=== PATIENT | female | born 1985 | race Caucasian/White ===

== ENCOUNTER 2017-01-13 16:36 | Inpatient (IN) | payer SELFPAY ==
[~2017-01-13] VITALS: Ht 170.2 cm; Wt 99.1 kg
[~2017-01-13 16:36] MED LIST: VECURONIUM 10 MG ONE
[2017-01-13] MEDS: NOREPINEPHRINE 4 MG in SODIUM CHLORIDE 0.9% 246 ML IV PRN ×2 (16:59→21:25)
[2017-01-13] MEDS ORDERED: DEXTROSE 50%, 50ML SYRINGE ONE (17:00)
[2017-01-13] MEDS ORDERED: SODIUM BICARB 8.4%, 50ML SYRINGE ONE (17:00)
[2017-01-13] MEDS ORDERED: SODIUM CHLORIDE 0.9%, 250ML ONE (17:00)
[2017-01-13] MEDS ORDERED: NOREPINEPHRINE 1 MG/ML, 4ML ONE (17:00)
[2017-01-13] MEDS ORDERED: EPINEPHRINE SYRINGE 0.1 MG/ML, 10ML ONE (17:00)
[2017-01-13] MEDS ORDERED: CALCIUM CHLORIDE 10%, 10ML SYR ONE (17:00)
[2017-01-13 17:17] LABS: ABG COLLECTION SITE NOT DOCUMENTED
[2017-01-13] MEDS: EPINEPHRINE 2 MG in SODIUM CHLORIDE 0.9% 248 ML IV PRN (17:20)
[2017-01-13] MEDS ORDERED: FENTANYL PF 100 MCG/2ML ONE ×2 (17:28→18:16)
[2017-01-13] MEDS ORDERED: SODIUM CHLORIDE FLUSH 10ML SYR IVF ONE (17:30)
[2017-01-13] MEDS ORDERED: SODIUM ACETATE 150 MEQ in DEXTROSE 5% 1,000 ML IV SCH (17:30)
[2017-01-13] MEDS ORDERED: SODIUM CHLORIDE 0.9% 1,000ML IVBOLUS ONE ×2 (17:30)
[2017-01-13 17:48] LABS: DIFF TOTAL CELLS COUNTED 100 CELL DIFF
[2017-01-13 17:49] LABS: ASPARTATE AMINO TRANSFERASE 94 U/L (15-37)
[2017-01-13 17:50] LABS: BLOOD UREA NITROGEN 8 mg/dL (7-18)
[2017-01-13 17:51] LABS: VERIFY COUNTS? YES
[2017-01-13] MEDS ORDERED: EPINEPHRINE 1 MG in SODIUM CHLORIDE 0.9% 249 ML IV PRN (17:55)
[2017-01-13] MEDS ORDERED: BISACODYL 10 MG SUPP PR PRN (18:00)
[2017-01-13] MEDS: ALBUTEROL/IPRATROPIUM 2.5MG/0.5MG, 3 ML INLINE SCH ×2 (18:00→21:50)
[2017-01-13] MEDS ORDERED: FAMOTIDINE 20 MG/2 ML IV SCH (18:00)
[2017-01-13] MEDS ORDERED: NOREPINEPHRINE 4 MG in SODIUM CHLORIDE 0.9% 246 ML IV PRN (18:00)
[2017-01-13] MEDS ORDERED: LIDOCAINE-MPF 1%, 2ML ENDO PRN (18:00)
[2017-01-13] MEDS ORDERED: PHARMACY MAY ADJ FOR RENAL FX MC SCH (18:00)
[2017-01-13] MEDS ORDERED: ASPIRIN 81 MG TABLET CHEW PO ONE (18:00)
[2017-01-13] MEDS ORDERED: FENTANYL PF 100 MCG/2ML IVPush PRN (18:00)
[2017-01-13 18:01] LABS: IS PT STATUS REG ER OR PRE ER? YES
[2017-01-13] MEDS ORDERED: DEXMEDETOMIDINE 200 MCG in SODIUM CHLORIDE 0.9% 48 ML IV PRN (18:21)
[2017-01-13] MEDS ORDERED: SODIUM PHOSPHATE 20 MMOL in SODIUM CHLORIDE 0.9% 250 ML IVPB PRN (18:21)
[2017-01-13] MEDS ORDERED: FENTANYL PF 250 MCG in SODIUM CHLORIDE 0.9% 250 ML IV PRN (18:21)
[2017-01-13] MEDS ORDERED: MAGNESIUM SULFATE 1 GM in SODIUM CHLORIDE 0.9% 50 ML IVPB PRN (18:30)
[2017-01-13] MEDS ORDERED: FENTANYL PF 100 MCG/2ML IV ONE (18:30)
[2017-01-13] MEDS ORDERED: FENTANYL PF 2,500 MCG in SODIUM CHLORIDE 0.9% 200 ML IV ONE (18:30)
[2017-01-13] MEDS: VECURONIUM 10 MG IVPush PRN ×2 (18:52→21:55)
[2017-01-13] MEDS ORDERED: AMIODARONE 150 MG in DEXTROSE 5% 100 ML IV ONE (19:00)
[2017-01-13] MEDS ORDERED: VANCOMYCIN PER PHARMACY MC PRN (19:00)
[2017-01-13] MEDS ORDERED: PIPERACILLIN/TAZO 3.375 GM in SODIUM CHLORIDE 0.9% 50 ML IV SCH (19:00)
[2017-01-13] MEDS ORDERED: AMIODARONE 900 MG in DEXTROSE 5% 482 ML IV PRN (19:00)
[2017-01-13] MEDS ORDERED: HEPARIN 5,000 UNITS/ML, 1ML ONE (19:01)
[2017-01-13] MEDS ORDERED: HEPARIN 25,000 UNITS/500ML PMX 500 ML ONE (19:01)
[2017-01-13] MEDS: MEROPENEM 1 GM in SODIUM CHLORIDE 0.9% 100 ML IV SCH (19:13)
[2017-01-13] MEDS: HEPARIN 25,000 UNITS/500ML PMX 500 ML IV PRN (19:15)
[2017-01-13 19:16] LABS: ABG COLLECTION SITE LEFT RADIAL; COLLATERAL CIRCULATION TESTING NORMAL
[2017-01-13] MEDS ORDERED: PHARMACOKINETIC CONSULTATION MC ONE (19:30)
[2017-01-13] MEDS ORDERED: HEPARIN 5,000 UNITS/ML, 1ML IV ONE (19:30)
[2017-01-13] MEDS ORDERED: PHARMACOKINETIC MONITORING MC PRN (19:30)
[2017-01-13 19:33] LABS: DAU SCREEN DISCLAIMER
[2017-01-13] MEDS ORDERED: VANCOMYCIN 2,400 MG in SODIUM CHLORIDE 0.9% 500 ML IV SCH (20:00)
[2017-01-13] MEDS ORDERED: FILTER 0.22 MICRON IV PRN (20:30)
[2017-01-13] MEDS: PROPOFOL 100 ML IV PRN (21:19)
[2017-01-13] MEDS: AMIODARONE 900 MG in DEXTROSE 5% 482 ML IV PRN (21:30)
[2017-01-13 22:25] LABS: IS PT STATUS REG ER OR PRE ER? NO
[2017-01-13] MEDS: KSCALE TO 4.0 IV SCH ×3 (22:29→23:00)
[2017-01-13] MEDS: BUSPIRONE 10 MG TABLET NG SCH (22:29)
[2017-01-13 22:33] LABS: ABG COLLECTION SITE RIGHT RADIAL; COLLATERAL CIRCULATION TESTING NORMAL
[2017-01-13] MEDS ORDERED: POTASSIUM CHLORIDE PMX 100 ML IV ONE (23:00)
[2017-01-13] MEDS: OCULAR LUBRICANT OPHTH OINT 3.5 GM EACHEYE SCH (23:01)
[2017-01-13] MEDS: REGULAR INSULIN 62.5 UNITS in SODIUM CHLORIDE 0.9% 249.375 ML IV PRN (23:19)
[2017-01-14] MEDS ORDERED: SODIUM BICARBONATE 1 MEQ/ML, 50ML VIAL ONE (01:29)
[2017-01-14] MEDS ORDERED: SODIUM BICARBONATE 1 MEQ/ML, 50ML VIAL IVPush ONE (01:30)
[2017-01-14] MEDS: ALBUTEROL/IPRATROPIUM 2.5MG/0.5MG, 3 ML INLINE SCH ×6 (01:35→22:15)
[2017-01-14] MEDS: KSCALE TO 4.0 IV SCH ×7 (02:30→23:00)
[2017-01-14] MEDS: PROPOFOL 100 ML IV PRN ×4 (02:55→22:30)
[2017-01-14] MEDS ORDERED: POTASSIUM CHLORIDE 40 MEQ in SODIUM CHLORIDE 0.9% 100 ML IV ONE (03:00)
[2017-01-14] MEDS: MEROPENEM 1 GM in SODIUM CHLORIDE 0.9% 100 ML IV SCH ×3 (03:28→18:42)
[2017-01-14] MEDS: SODIUM ACETATE 150 MEQ in DEXTROSE 5% 1,000 ML IV SCH ×2 (03:41→11:43)
[2017-01-14 04:02] VITALS: BP 108/69
[2017-01-14] MEDS: MAGNESIUM SULFATE 1 GM in SODIUM CHLORIDE 0.9% 50 ML IVPB PRN ×2 (04:04→20:25)
[2017-01-14 04:46] LABS: ABG COLLECTION SITE RIGHT RADIAL; COLLATERAL CIRCULATION TESTING NORMAL
[2017-01-14 04:59] LABS: BLOOD UREA NITROGEN 16 mg/dL (7-18)
[2017-01-14 05:02] LABS: ASPARTATE AMINO TRANSFERASE 87 U/L (15-37)
[2017-01-14 05:13] LABS: DIFF TOTAL CELLS COUNTED 100 CELL DIFF
[2017-01-14 05:16] LABS: ANISOCYTOSIS 1+; GIANT PLATELETS 1+; POLYCHROMASIA 1+
[2017-01-14 05:17] LABS: VERIFY COUNTS? YES
[2017-01-14 06:44] LABS: IS PT STATUS REG ER OR PRE ER? NO
[2017-01-14] MEDS: REGULAR INSULIN 62.5 UNITS in SODIUM CHLORIDE 0.9% 249.375 ML IV PRN ×4 (07:46→18:49)
[2017-01-14] MEDS: BUSPIRONE 10 MG TABLET NG SCH ×3 (07:57→23:24)
[2017-01-14] MEDS: OCULAR LUBRICANT OPHTH OINT 3.5 GM EACHEYE SCH ×3 (07:57→23:24)
[2017-01-14] MEDS: PANTOPRAZOLE 40 MG IV IVPush SCH (07:57)
[2017-01-14] MEDS: NOREPINEPHRINE 8 MG in SODIUM CHLORIDE 0.9% 242 ML IV PRN ×2 (09:14→19:56)
[2017-01-14] MEDS ORDERED: POTASSIUM CHLORIDE 30 MEQ in SODIUM CHLORIDE 0.9% 100 ML IV ONE ×2 (10:00→15:00)
[2017-01-14] MEDS: FENTANYL PF 250 MCG in SODIUM CHLORIDE 0.9% 245 ML IV PRN ×2 (11:12→20:15)
[2017-01-14] MEDS: EPINEPHRINE 2 MG in SODIUM CHLORIDE 0.9% 248 ML IV PRN (11:43)
[2017-01-14] MEDS ORDERED: VANCOMYCIN 2,400 MG in SODIUM CHLORIDE 0.9% 500 ML IV ONE (12:00)
[2017-01-14] MEDS ORDERED: SODIUM ACETATE 75 MEQ in SODIUM CHLORIDE 0.45% 1,000 ML IV SCH (14:30)
[2017-01-14] MEDS: HEPARIN 5,000 UNITS/ML, 1ML IV PRN (14:43)
[2017-01-14] MEDS ORDERED: POTASSIUM CHLORIDE 10% 40 MEQ/30 ML UDC PO ONE (15:00)
[2017-01-14] MEDS: SODIUM ACETATE 75 MEQ in SODIUM CHLORIDE 0.45% 1,000 ML IV SCH ×2 (15:07→23:28)
[2017-01-14 16:39] LABS: ABG COLLECTION SITE RIGHT RADIAL; COLLATERAL CIRCULATION TESTING NORMAL
[2017-01-14] MEDS: VECURONIUM 10 MG IVPush PRN (17:00)
[2017-01-14] MEDS ORDERED: DEXTROSE 50%, 50ML VIAL ONE (19:17)
[2017-01-14] MEDS: HEPARIN 25,000 UNITS/500ML PMX 500 ML IV PRN (19:32)
[2017-01-14] MEDS ORDERED: POTASSIUM CHLORIDE PMX 100 ML IV ONE ×2 (20:00→23:30)
[2017-01-14 20:18] LABS: ABG COLLECTION SITE LEFT BRACHIAL
[2017-01-14] MEDS: AMIODARONE 900 MG in DEXTROSE 5% 482 ML IV PRN (22:30)
[2017-01-15 00:47] LABS: ABG COLLECTION SITE LEFT RADIAL; COLLATERAL CIRCULATION TESTING NORMAL
[2017-01-15] MEDS ORDERED: SODIUM CHLORIDE 0.9% 1,000ML IVBOLUS ONE (01:30)
[2017-01-15] MEDS: PROPOFOL 100 ML IV PRN ×3 (01:40→14:57)
[2017-01-15] MEDS: ALBUTEROL/IPRATROPIUM 2.5MG/0.5MG, 3 ML INLINE SCH ×6 (01:57→21:44)
[2017-01-15] MEDS: NOREPINEPHRINE 8 MG in SODIUM CHLORIDE 0.9% 242 ML IV PRN ×2 (02:14→08:10)
[2017-01-15] MEDS: FENTANYL PF 250 MCG in SODIUM CHLORIDE 0.9% 245 ML IV PRN (02:14)
[2017-01-15] MEDS: EPINEPHRINE 2 MG in SODIUM CHLORIDE 0.9% 248 ML IV PRN ×2 (02:15→09:12)
[2017-01-15] MEDS: MEROPENEM 1 GM in SODIUM CHLORIDE 0.9% 100 ML IV SCH ×3 (03:03→18:36)
[2017-01-15 03:40] LABS: ASPARTATE AMINO TRANSFERASE 70 U/L (15-37); BLOOD UREA NITROGEN 19 mg/dL (7-18)
[2017-01-15] MEDS ORDERED: POTASSIUM CHLORIDE PMX 100 ML IV ONE (04:30)
[2017-01-15 04:34] LABS: ABG COLLECTION SITE RIGHT RADIAL; COLLATERAL CIRCULATION TESTING NORMAL
[2017-01-15] MEDS: MAGNESIUM SULFATE 1 GM in SODIUM CHLORIDE 0.9% 50 ML IVPB PRN (04:38)
[2017-01-15] MEDS: KSCALE TO 4.0 IV SCH ×5 (04:39→22:00)
[2017-01-15 05:09] LABS: DIFF TOTAL CELLS COUNTED 100 CELL DIFF
[2017-01-15] MEDS: PHENYLEPHRINE 10 MG in SODIUM CHLORIDE 0.9% 249 ML IV PRN ×2 (05:10→07:43)
[2017-01-15 05:11] LABS: ANISOCYTOSIS 1+; VERIFY COUNTS? YES
[2017-01-15 05:12] LABS: GIANT PLATELETS 1+; LARGE PLATELETS 1+; OVALOCYTES 1+
[2017-01-15 05:15] VITALS: BP 104/53
[2017-01-15] MEDS: OCULAR LUBRICANT OPHTH OINT 3.5 GM EACHEYE SCH ×3 (06:39→23:06)
[2017-01-15] MEDS: BUSPIRONE 10 MG TABLET NG SCH ×3 (07:30→23:13)
[2017-01-15] MEDS ORDERED: DOBUTAMINE 250 MG in SODIUM CHLORIDE 0.9% 230 ML IV PRN (08:00)
[2017-01-15 08:09] LABS: ABG COLLECTION SITE RIGHT RADIAL
[2017-01-15 08:10] LABS: COLLATERAL CIRCULATION TESTING NORMAL
[2017-01-15] MEDS: SODIUM ACETATE 75 MEQ in SODIUM CHLORIDE 0.45% 1,000 ML IV SCH ×2 (08:30→17:29)
[2017-01-15] MEDS ORDERED: FENTANYL PF 2,500 MCG in SODIUM CHLORIDE 0.9% 200 ML IV PRN (09:00)
[2017-01-15] MEDS: PANTOPRAZOLE 40 MG IV IVPush SCH (09:50)
[2017-01-15] MEDS ORDERED: PHENYLEPHRINE 20 MG in SODIUM CHLORIDE 0.9% 248 ML IV PRN (10:00)
[2017-01-15 12:05] LABS: ABG COLLECTION SITE RIGHT RADIAL; COLLATERAL CIRCULATION TESTING NORMAL
[2017-01-15] MEDS: NOREPINEPHRINE 16 MG in SODIUM CHLORIDE 0.9% 234 ML IV PRN ×2 (13:33→21:09)
[2017-01-15] MEDS: EPINEPHRINE 4 MG in SODIUM CHLORIDE 0.9% 246 ML IV PRN ×2 (13:46→21:10)
[2017-01-15] MEDS ORDERED: LIDOCAINE 1%, 20ML ONE (15:01)
[2017-01-15] MEDS: PHENYLEPHRINE 40 MG in SODIUM CHLORIDE 0.9% 246 ML IV PRN ×3 (16:29→23:51)
[2017-01-15 16:33] LABS: ABG COLLECTION SITE RIGHT RADIAL; COLLATERAL CIRCULATION TESTING NORMAL
[2017-01-15] MEDS ORDERED: PICC FLUSH PROTOCOL XX PRN (18:00)
[2017-01-15 20:11] LABS: ABG COLLECTION SITE RIGHT RADIAL; COLLATERAL CIRCULATION TESTING NOT DOCUMENTED
[2017-01-15] MEDS: HEPARIN 25,000 UNITS/500ML PMX 500 ML IV PRN (23:45)
[2017-01-16] MEDS: PROPOFOL 100 ML IV PRN ×3 (01:03→18:44)
[2017-01-16 01:52] LABS: ABG COLLECTION SITE RIGHT BRACHIAL
[2017-01-16] MEDS: KSCALE TO 4.0 IV SCH (02:00)
[2017-01-16] MEDS: SODIUM ACETATE 75 MEQ in SODIUM CHLORIDE 0.45% 1,000 ML IV SCH ×2 (02:09→08:19)
[2017-01-16] MEDS: ALBUTEROL/IPRATROPIUM 2.5MG/0.5MG, 3 ML INLINE SCH ×6 (02:20→21:45)
[2017-01-16] MEDS ORDERED: VECURONIUM 10 MG IVPush PRN (02:30)
[2017-01-16] MEDS: MEROPENEM 1 GM in SODIUM CHLORIDE 0.9% 100 ML IV SCH ×3 (03:04→19:02)
[2017-01-16] MEDS: VECURONIUM 10 MG IVPush PRN ×4 (03:07→17:37)
[2017-01-16] MEDS: EPINEPHRINE 4 MG in SODIUM CHLORIDE 0.9% 246 ML IV PRN ×2 (03:52→11:43)
[2017-01-16 04:00] VITALS: BP 90/72
[2017-01-16] MEDS: AMIODARONE 900 MG in DEXTROSE 5% 482 ML IV PRN (04:21)
[2017-01-16 04:58] LABS: ABG COLLECTION SITE LEFT RADIAL; COLLATERAL CIRCULATION TESTING NORMAL
[2017-01-16] MEDS: NOREPINEPHRINE 16 MG in SODIUM CHLORIDE 0.9% 234 ML IV PRN ×2 (05:41→14:52)
[2017-01-16 05:43] LABS: ASPARTATE AMINO TRANSFERASE 81 U/L (15-37); BLOOD UREA NITROGEN 22 mg/dL (7-18)
[2017-01-16 06:01] LABS: DIFF TOTAL CELLS COUNTED 100 CELL DIFF
[2017-01-16 06:03] LABS: ANISOCYTOSIS 1+; VERIFY COUNTS? YES
[2017-01-16 06:05] LABS: LARGE PLATELETS 1+; POLYCHROMASIA 1+
[2017-01-16] MEDS: OCULAR LUBRICANT OPHTH OINT 3.5 GM EACHEYE SCH ×3 (06:16→23:38)
[2017-01-16] MEDS: BUSPIRONE 10 MG TABLET NG SCH ×2 (07:30→14:58)
[2017-01-16] MEDS: PHENYLEPHRINE 40 MG in SODIUM CHLORIDE 0.9% 246 ML IV PRN (07:56)
[2017-01-16] MEDS: ALBUMIN HUMAN 25% 100 ML IV SCH ×3 (10:17→21:08)
[2017-01-16] MEDS: PANTOPRAZOLE 40 MG IV IVPush SCH (10:17)
[2017-01-16] MEDS: FENTANYL PF 2,500 MCG in SODIUM CHLORIDE 0.9% 200 ML IV PRN (11:32)
[2017-01-16 11:56] LABS: POTASSIUM,URINE RANDOM 33 mmol/L
[2017-01-16 15:13] LABS: ASPARTATE AMINO TRANSFERASE 78 U/L (15-37); BLOOD UREA NITROGEN 12 mg/dL (7-18)
[2017-01-16 15:44] LABS: DIFF TOTAL CELLS COUNTED 200 CELL DIFF
[2017-01-16 15:45] LABS: ANISOCYTOSIS 1+
[2017-01-16 15:46] LABS: OVALOCYTES 1+; POLYCHROMASIA 1+
[2017-01-16 15:48] LABS: LARGE PLATELETS 1+
[2017-01-16] MEDS ORDERED: SODIUM CHLORIDE 0.9% 1,000ML IVBOLUS ONE (17:00)
[2017-01-16] MEDS: HEPARIN 25,000 UNITS/500ML PMX 500 ML IV PRN (22:20)
[2017-01-17] MEDS: ALBUTEROL/IPRATROPIUM 2.5MG/0.5MG, 3 ML INLINE SCH ×6 (02:14→22:00)
[2017-01-17] MEDS: VECURONIUM 10 MG IVPush PRN ×4 (02:27→17:20)
[2017-01-17] MEDS: MEROPENEM 1 GM in SODIUM CHLORIDE 0.9% 100 ML IV SCH ×3 (02:44→18:59)
[2017-01-17] MEDS: ALBUMIN HUMAN 25% 100 ML IV SCH (03:17)
[2017-01-17 04:00] VITALS: BP 126/66
[2017-01-17 04:16] LABS: ABG COLLECTION SITE RIGHT RADIAL; COLLATERAL CIRCULATION TESTING NORMAL
[2017-01-17 04:47] LABS: DIFF TOTAL CELLS COUNTED 100 CELL DIFF
[2017-01-17 04:56] LABS: ANISOCYTOSIS 1+; VERIFY COUNTS? YES
[2017-01-17 04:57] LABS: LARGE PLATELETS 1+; POLYCHROMASIA 1+
[2017-01-17] MEDS: HEPARIN 5,000 UNITS/ML, 1ML IV PRN ×2 (04:57→19:38)
[2017-01-17 05:36] LABS: ASPARTATE AMINO TRANSFERASE 56 U/L (15-37); BLOOD UREA NITROGEN 15 mg/dL (7-18); TOTAL IRON BINDING CAPACITY 142 mcg/dL (250-450)
[2017-01-17] MEDS: PROPOFOL 100 ML IV PRN ×4 (05:39→23:59)
[2017-01-17 08:42] LABS: HIT LOT CART23835/KIT23844
[2017-01-17] MEDS: PANTOPRAZOLE 40 MG IV IVPush SCH (08:57)
[2017-01-17 09:26] LABS: HIT OBC PASS; HIT RESULT NEGATIVE (NEGATIVE)
[2017-01-17] MEDS: AMIODARONE 900 MG in DEXTROSE 5% 482 ML IV PRN (09:53)
[2017-01-17] MEDS: NOREPINEPHRINE 16 MG in SODIUM CHLORIDE 0.9% 234 ML IV PRN (12:13)
[2017-01-17] MEDS: OCULAR LUBRICANT OPHTH OINT 3.5 GM EACHEYE SCH ×3 (13:57→23:41)
[2017-01-17] MEDS: FENTANYL PF 2,500 MCG in SODIUM CHLORIDE 0.9% 200 ML IV PRN (15:02)
[2017-01-17] MEDS: HEPARIN 25,000 UNITS/500ML PMX 500 ML IV PRN (19:38)
[2017-01-18] MEDS: VECURONIUM 10 MG IVPush PRN ×3 (00:37→18:55)
[2017-01-18] MEDS: ALBUTEROL/IPRATROPIUM 2.5MG/0.5MG, 3 ML INLINE SCH ×6 (02:00→22:00)
[2017-01-18 03:57] VITALS: BP 115/63
[2017-01-18 04:29] LABS: ABG COLLECTION SITE LEFT RADIAL; COLLATERAL CIRCULATION TESTING NORMAL
[2017-01-18] MEDS: PROPOFOL 100 ML IV PRN ×3 (05:10→18:30)
[2017-01-18] MEDS: MEROPENEM 1 GM in SODIUM CHLORIDE 0.9% 100 ML IV SCH ×2 (06:08→18:47)
[2017-01-18] MEDS: OCULAR LUBRICANT OPHTH OINT 3.5 GM EACHEYE SCH ×3 (06:08→23:10)
[2017-01-18 06:44] LABS: ASPARTATE AMINO TRANSFERASE 58 U/L (15-37); BLOOD UREA NITROGEN 11 mg/dL (7-18)
[2017-01-18 06:54] LABS: DIFF TOTAL CELLS COUNTED 100 CELL DIFF
[2017-01-18 06:56] LABS: ANISOCYTOSIS 1+; OVALOCYTES 1+; VERIFY COUNTS? YES
[2017-01-18 06:57] LABS: LARGE PLATELETS 1+
[2017-01-18] MEDS: PANTOPRAZOLE 40 MG IV IVPush SCH (08:04)
[2017-01-18] MEDS ORDERED: FUROSEMIDE 40 MG/4 ML IV ONE (08:30)
[2017-01-18] MEDS: HEPARIN 25,000 UNITS/500ML PMX 500 ML IV PRN (11:33)
[2017-01-18] MEDS ORDERED: OMNIPAQUE 350 MG/ML, 100ML BOTTLE ONE (12:22)
[2017-01-18] MEDS: AMIODARONE 900 MG in DEXTROSE 5% 482 ML IV PRN (16:52)
[2017-01-18] MEDS: FENTANYL PF 2,500 MCG in SODIUM CHLORIDE 0.9% 200 ML IV PRN (18:50)
[2017-01-18] MEDS: HEPARIN 5,000 UNITS/ML, 1ML SQ SCH (23:09)
[2017-01-19] MEDS: ALBUTEROL/IPRATROPIUM 2.5MG/0.5MG, 3 ML INLINE SCH ×6 (02:00→21:56)
[2017-01-19] MEDS: PROPOFOL 100 ML IV PRN ×3 (04:03→17:56)
[2017-01-19 04:15] VITALS: BP 128/63
[2017-01-19 04:19] LABS: ABG COLLECTION SITE RIGHT RADIAL; COLLATERAL CIRCULATION TESTING NORMAL
[2017-01-19 06:00] LABS: DIFF TOTAL CELLS COUNTED 100 CELL DIFF
[2017-01-19 06:02] LABS: VERIFY COUNTS? YES
[2017-01-19 06:03] LABS: ANISOCYTOSIS 1+; POLYCHROMASIA 1+
[2017-01-19 06:04] LABS: LARGE PLATELETS 1+; OVALOCYTES 1+
[2017-01-19 06:06] LABS: BLOOD UREA NITROGEN 10 mg/dL (7-18)
[2017-01-19] MEDS: MEROPENEM 1 GM in SODIUM CHLORIDE 0.9% 100 ML IV SCH ×2 (06:49→18:26)
[2017-01-19] MEDS: OCULAR LUBRICANT OPHTH OINT 3.5 GM EACHEYE SCH ×3 (06:49→23:38)
[2017-01-19] MEDS: VECURONIUM 10 MG IVPush PRN ×3 (08:42→15:03)
[2017-01-19] MEDS: FLUCONAZOLE 200 MG/100 ML 100 ML IV SCH (08:43)
[2017-01-19] MEDS: HEPARIN 5,000 UNITS/ML, 1ML SQ SCH ×3 (08:44→23:38)
[2017-01-19] MEDS: PANTOPRAZOLE 40 MG IV IVPush SCH (08:44)
[2017-01-19 10:19] LABS: HEP B SURF. AB < 3.1 mIU/mL (0.0-10.0)
[2017-01-19] MEDS ORDERED: FILTER 0.22 MICRON IV ONE (14:30)
[2017-01-19] MEDS ORDERED: PHENYTOIN SODIUM 1,000 MG in SODIUM CHLORIDE 0.9% 80 ML IV ONE (14:30)
[2017-01-19] MEDS: FILTER 0.22 MICRON IV PRN (16:04)
[2017-01-19] MEDS: NOREPINEPHRINE 16 MG in SODIUM CHLORIDE 0.9% 234 ML IV PRN (16:04)
[2017-01-19] MEDS: AMIODARONE 900 MG in DEXTROSE 5% 482 ML IV PRN (16:04)
[2017-01-19] MEDS: FENTANYL PF 2,500 MCG in SODIUM CHLORIDE 0.9% 200 ML IV PRN (17:57)
[2017-01-19] MEDS: LEVETIRACETAM 100 MG/ML ORAL SOL PO SCH (21:21)
[2017-01-20] MEDS: ALBUTEROL/IPRATROPIUM 2.5MG/0.5MG, 3 ML INLINE SCH ×6 (02:00→21:57)
[2017-01-20] MEDS: PROPOFOL 100 ML IV PRN ×3 (03:48→20:48)
[2017-01-20 04:00] VITALS: BP 124/68
[2017-01-20 04:11] LABS: ABG COLLECTION SITE RIGHT RADIAL; COLLATERAL CIRCULATION TESTING NORMAL
[2017-01-20] MEDS: VECURONIUM 10 MG IVPush PRN (05:17)
[2017-01-20] MEDS: OCULAR LUBRICANT OPHTH OINT 3.5 GM EACHEYE SCH ×2 (06:15→16:20)
[2017-01-20] MEDS: MEROPENEM 1 GM in SODIUM CHLORIDE 0.9% 100 ML IV SCH ×2 (06:15→19:44)
[2017-01-20 06:16] LABS: ASPARTATE AMINO TRANSFERASE 47 U/L (15-37); BLOOD UREA NITROGEN 16 mg/dL (7-18)
[2017-01-20 06:33] LABS: DIFF TOTAL CELLS COUNTED 100 CELL DIFF
[2017-01-20 06:35] LABS: ANISOCYTOSIS 1+; POLYCHROMASIA 1+; VERIFY COUNTS? YES
[2017-01-20 06:38] LABS: OVALOCYTES 1+
[2017-01-20] MEDS: PANTOPRAZOLE 40 MG IV IVPush SCH (08:53)
[2017-01-20] MEDS: LEVETIRACETAM 100 MG/ML ORAL SOL PO SCH ×2 (08:53→20:48)
[2017-01-20] MEDS: HEPARIN 5,000 UNITS/ML, 1ML SQ SCH ×2 (08:55→16:18)
[2017-01-20] MEDS: FLUCONAZOLE 200 MG/100 ML 100 ML IV SCH (16:19)
[2017-01-21] MEDS: OCULAR LUBRICANT OPHTH OINT 3.5 GM EACHEYE SCH ×2 (00:30→07:00)
[2017-01-21] MEDS: HEPARIN 5,000 UNITS/ML, 1ML SQ SCH ×3 (00:32→15:47)
[2017-01-21] MEDS: ALBUTEROL/IPRATROPIUM 2.5MG/0.5MG, 3 ML INLINE SCH ×6 (01:31→22:00)
[2017-01-21] MEDS: PROPOFOL 100 ML IV PRN ×3 (03:17→19:58)
[2017-01-21 04:00] VITALS: BP 114/67
[2017-01-21 04:43] LABS: ABG COLLECTION SITE LEFT RADIAL; COLLATERAL CIRCULATION TESTING NORMAL
[2017-01-21 04:56] LABS: ASPARTATE AMINO TRANSFERASE 48 U/L (15-37); BLOOD UREA NITROGEN 20 mg/dL (7-18)
[2017-01-21 05:20] LABS: DIFF TOTAL CELLS COUNTED 100 CELL DIFF
[2017-01-21 05:21] LABS: VERIFY COUNTS? YES
[2017-01-21 05:22] LABS: ANISOCYTOSIS 1+; LARGE PLATELETS 1+; OVALOCYTES 1+; POLYCHROMASIA 1+
[2017-01-21] MEDS: FENTANYL PF 2,500 MCG in SODIUM CHLORIDE 0.9% 200 ML IV PRN (05:30)
[2017-01-21] MEDS: AMIODARONE 900 MG in DEXTROSE 5% 482 ML IV PRN (05:31)
[2017-01-21] MEDS: FILTER 0.22 MICRON IV PRN (05:32)
[2017-01-21] MEDS: PANTOPRAZOLE 40 MG IV IVPush SCH (07:30)
[2017-01-21] MEDS: FLUCONAZOLE 200 MG/100 ML 100 ML IV SCH (07:30)
[2017-01-21] MEDS: LEVETIRACETAM 100 MG/ML ORAL SOL PO SCH ×2 (07:31→20:01)
[2017-01-21] MEDS: MEROPENEM 1 GM in SODIUM CHLORIDE 0.9% 100 ML IV SCH ×2 (07:31→20:00)
[2017-01-21 15:23] LABS: ABG COLLECTION SITE LEFT BRACHIAL
[2017-01-21] MEDS: VECURONIUM 10 MG IVPush PRN ×2 (15:46→20:38)
[2017-01-22] MEDS: HEPARIN 5,000 UNITS/ML, 1ML SQ SCH ×4 (00:31→23:55)
[2017-01-22] MEDS: PROPOFOL 100 ML IV PRN ×4 (01:09→20:18)
[2017-01-22] MEDS: ALBUTEROL/IPRATROPIUM 2.5MG/0.5MG, 3 ML INLINE SCH ×6 (01:33→22:00)
[2017-01-22 04:00] VITALS: BP 124/67
[2017-01-22 04:32] LABS: ABG COLLECTION SITE LEFT RADIAL; COLLATERAL CIRCULATION TESTING NORMAL
[2017-01-22 05:49] LABS: ASPARTATE AMINO TRANSFERASE 53 U/L (15-37); BLOOD UREA NITROGEN 30 mg/dL (7-18)
[2017-01-22] MEDS: FENTANYL PF 2,500 MCG in SODIUM CHLORIDE 0.9% 200 ML IV PRN (06:07)
[2017-01-22 06:18] LABS: DIFF TOTAL CELLS COUNTED 100 CELL DIFF
[2017-01-22 06:19] LABS: ANISOCYTOSIS 1+; POLYCHROMASIA 1+
[2017-01-22 06:20] LABS: OVALOCYTES 1+
[2017-01-22 06:21] LABS: VERIFY COUNTS? YES
[2017-01-22] MEDS: LEVETIRACETAM 100 MG/ML ORAL SOL PO SCH ×2 (07:09→20:02)
[2017-01-22] MEDS: PANTOPRAZOLE 40 MG IV IVPush SCH (07:09)
[2017-01-22] MEDS: MEROPENEM 1 GM in SODIUM CHLORIDE 0.9% 100 ML IV SCH ×2 (07:09→20:02)
[2017-01-22] MEDS ORDERED: PHARMACOKINETIC MONITORING MC PRN (07:30)
[2017-01-22] MEDS ORDERED: PHARMACOKINETIC CONSULTATION MC ONE (07:30)
[2017-01-22] MEDS ORDERED: VANCOMYCIN PER PHARMACY MC PRN (07:30)
[2017-01-22] MEDS ORDERED: VANCOMYCIN 2,200 MG in SODIUM CHLORIDE 0.9% 500 ML IV ONE (07:30)
[2017-01-22] MEDS ORDERED: METHYLNALTREXONE 12 MG/0.6 ML SQ ONE (09:00)
[2017-01-22] MEDS: VECURONIUM 10 MG IVPush PRN ×3 (09:27→20:26)
[2017-01-22] MEDS: AMIODARONE 900 MG in DEXTROSE 5% 482 ML IV PRN (11:24)
[2017-01-22] MEDS: ERGOCALCIFEROL 50,000 UNIT CAPSULE PO SCH (14:31)
[2017-01-23] MEDS: VECURONIUM 10 MG IVPush PRN ×2 (02:01→18:51)
[2017-01-23] MEDS: PROPOFOL 100 ML IV PRN ×4 (02:14→23:17)
[2017-01-23] MEDS: ALBUTEROL/IPRATROPIUM 2.5MG/0.5MG, 3 ML INLINE SCH ×6 (02:20→21:48)
[2017-01-23 02:26] LABS: ABG COLLECTION SITE RIGHT RADIAL; COLLATERAL CIRCULATION TESTING NORMAL
[2017-01-23 04:00] VITALS: BP 126/73
[2017-01-23 04:11] LABS: ABG COLLECTION SITE RIGHT RADIAL; COLLATERAL CIRCULATION TESTING NORMAL
[2017-01-23 05:25] LABS: BLOOD UREA NITROGEN 43 mg/dL (7-18)
[2017-01-23 05:28] LABS: ASPARTATE AMINO TRANSFERASE 48 U/L (15-37)
[2017-01-23 05:39] LABS: DIFF TOTAL CELLS COUNTED 100 CELL DIFF
[2017-01-23 05:42] LABS: ANISOCYTOSIS 1+; OVALOCYTES 1+; POLYCHROMASIA 1+; VERIFY COUNTS? YES
[2017-01-23 06:54] LABS: VERIFY COUNTS? YES
[2017-01-23] MEDS: HEPARIN 5,000 UNITS/ML, 1ML SQ SCH ×3 (10:05→23:20)
[2017-01-23] MEDS: PANTOPRAZOLE 40 MG IV IVPush SCH (10:05)
[2017-01-23] MEDS: AMIODARONE 200 MG TABLET NG SCH ×2 (10:06→21:19)
[2017-01-23] MEDS: LEVETIRACETAM 100 MG/ML ORAL SOL PO SCH ×2 (10:06→21:19)
[2017-01-23] MEDS: MICAFUNGIN 100 MG in SODIUM CHLORIDE 0.9% 100 ML IV SCH (12:50)
[2017-01-23] MEDS: MEROPENEM 1 GM in SODIUM CHLORIDE 0.9% 100 ML IV SCH ×2 (12:51→20:01)
[2017-01-23] MEDS: SENNA/DOCUSATE TABLET NG PRN (21:20)
[2017-01-23] MEDS: LACTULOSE 20 GM/30 ML UDC NG PRN (22:21)
[2017-01-24] MEDS: ALBUTEROL/IPRATROPIUM 2.5MG/0.5MG, 3 ML INLINE SCH ×6 (01:50→22:00)
[2017-01-24 04:00] VITALS: BP 114/49
[2017-01-24 04:34] LABS: ABG COLLECTION SITE RIGHT RADIAL; COLLATERAL CIRCULATION TESTING NORMAL
[2017-01-24] MEDS: PROPOFOL 100 ML IV PRN ×3 (04:49→16:31)
[2017-01-24 04:53] LABS: BLOOD UREA NITROGEN 53 mg/dL (7-18)
[2017-01-24 05:53] LABS: DIFF TOTAL CELLS COUNTED 100 CELL DIFF
[2017-01-24 05:55] LABS: ANISOCYTOSIS 1+; OVALOCYTES 1+; POLYCHROMASIA 1+; VERIFY COUNTS? YES
[2017-01-24] MEDS: MICAFUNGIN 100 MG in SODIUM CHLORIDE 0.9% 100 ML IV SCH (06:47)
[2017-01-24] MEDS: HEPARIN 5,000 UNITS/ML, 1ML SQ SCH ×3 (07:08→23:26)
[2017-01-24] MEDS: PANTOPRAZOLE 40 MG IV IVPush SCH (07:08)
[2017-01-24] MEDS: LEVETIRACETAM 100 MG/ML ORAL SOL PO SCH ×2 (07:09→20:22)
[2017-01-24] MEDS: MEROPENEM 1 GM in SODIUM CHLORIDE 0.9% 100 ML IV SCH ×2 (07:09→20:19)
[2017-01-24] MEDS: AMIODARONE 200 MG TABLET NG SCH ×2 (07:09→20:22)
[2017-01-24] MEDS: SENNOSIDES 8.8 MG/5 ML ORAL SOL NG PRN ×2 (07:21→20:22)
[2017-01-24] MEDS ORDERED: VANCOMYCIN 2,200 MG in SODIUM CHLORIDE 0.9% 500 ML IV ONE (12:00)
[2017-01-24] MEDS ORDERED: BISACODYL 10 MG SUPP PR PRN (19:00)
[2017-01-24] MEDS: VECURONIUM 10 MG IVPush PRN (19:38)
[2017-01-24] MEDS: LACTULOSE 20 GM/30 ML UDC NG PRN (20:22)
[2017-01-24] MEDS: FENTANYL PF 2,500 MCG in SODIUM CHLORIDE 0.9% 200 ML IV PRN (21:38)
[2017-01-24] MEDS: NOREPINEPHRINE 16 MG in SODIUM CHLORIDE 0.9% 234 ML IV PRN (23:42)
[2017-01-25] MEDS: ALBUTEROL/IPRATROPIUM 2.5MG/0.5MG, 3 ML INLINE SCH ×6 (02:00→21:45)
[2017-01-25 03:34] LABS: BLOOD UREA NITROGEN 42 mg/dL (7-18)
[2017-01-25 04:00] VITALS: BP 128/67
[2017-01-25 04:02] LABS: DIFF TOTAL CELLS COUNTED 100 CELL DIFF
[2017-01-25 04:21] LABS: ANISOCYTOSIS 1+; OVALOCYTES 1+; POLYCHROMASIA 1+
[2017-01-25 04:31] LABS: VERIFY COUNTS? YES
[2017-01-25] MEDS: PROPOFOL 100 ML IV PRN ×4 (04:51→19:46)
[2017-01-25] MEDS: MICAFUNGIN 100 MG in SODIUM CHLORIDE 0.9% 100 ML IV SCH (06:16)
[2017-01-25] MEDS: PANTOPRAZOLE 40 MG IV IVPush SCH (09:14)
[2017-01-25] MEDS: MEROPENEM 1 GM in SODIUM CHLORIDE 0.9% 100 ML IV SCH (09:14)
[2017-01-25] MEDS: SENNA/DOCUSATE TABLET NG PRN (09:14)
[2017-01-25] MEDS: AMIODARONE 200 MG TABLET NG SCH ×2 (09:14→20:27)
[2017-01-25] MEDS: HEPARIN 5,000 UNITS/ML, 1ML SQ SCH ×2 (09:15→17:12)
[2017-01-25] MEDS: LEVETIRACETAM 100 MG/ML ORAL SOL PO SCH ×2 (09:15→20:26)
[2017-01-25] MEDS: METHYLNALTREXONE 12 MG/0.6 ML SQ SCH (10:24)
[2017-01-25] MEDS: SODIUM BICARBONATE 4.2%, 5ML NPPB SCH ×4 (10:30→21:30)
[2017-01-25] MEDS: BISACODYL 10 MG SUPP PR PRN (22:43)
[2017-01-26] MEDS: HEPARIN 5,000 UNITS/ML, 1ML SQ SCH ×4 (00:38→23:42)
[2017-01-26] MEDS: MEROPENEM 1 GM in SODIUM CHLORIDE 0.9% 100 ML IV SCH ×2 (00:39→11:45)
[2017-01-26] MEDS: SODIUM BICARBONATE 4.2%, 5ML NPPB SCH ×6 (01:21→21:30)
[2017-01-26] MEDS: ALBUTEROL/IPRATROPIUM 2.5MG/0.5MG, 3 ML INLINE SCH ×6 (02:00→22:00)
[2017-01-26] MEDS: FENTANYL PF 2,500 MCG in SODIUM CHLORIDE 0.9% 200 ML IV PRN (02:42)
[2017-01-26 04:09] VITALS: BP 110/54
[2017-01-26 04:19] LABS: BLOOD UREA NITROGEN 38 mg/dL (7-18)
[2017-01-26 04:31] LABS: ABG COLLECTION SITE LEFT RADIAL; COLLATERAL CIRCULATION TESTING NORMAL
[2017-01-26 05:04] LABS: DIFF TOTAL CELLS COUNTED 100 CELL DIFF
[2017-01-26 05:05] LABS: VERIFY COUNTS? YES
[2017-01-26 05:06] LABS: ANISOCYTOSIS 1+; OVALOCYTES 1+; POLYCHROMASIA 1+
[2017-01-26] MEDS: PROPOFOL 100 ML IV PRN ×3 (05:50→23:21)
[2017-01-26] MEDS: MICAFUNGIN 100 MG in SODIUM CHLORIDE 0.9% 100 ML IV SCH (06:43)
[2017-01-26] MEDS: PANTOPRAZOLE 40 MG IV IVPush SCH (08:41)
[2017-01-26] MEDS: LEVETIRACETAM 100 MG/ML ORAL SOL PO SCH ×2 (08:41→21:55)
[2017-01-26] MEDS: AMIODARONE 200 MG TABLET NG SCH ×2 (08:41→21:55)
[2017-01-26] MEDS: METHYLNALTREXONE 12 MG/0.6 ML SQ SCH (08:42)
[2017-01-26] MEDS: LACTULOSE 20 GM/30 ML UDC NG PRN ×2 (11:45→21:56)
[2017-01-26] MEDS: POLYETHYLENE GLYCOL 17 GM PACKET PO PRN (15:03)
[2017-01-26] MEDS: NOREPINEPHRINE 16 MG in SODIUM CHLORIDE 0.9% 234 ML IV PRN (15:04)
[2017-01-26] MEDS: BISACODYL 10 MG SUPP PR PRN (18:20)
[2017-01-27] MEDS: MEROPENEM 1 GM in SODIUM CHLORIDE 0.9% 100 ML IV SCH (00:40)
[2017-01-27] MEDS: FENTANYL PF 2,500 MCG in SODIUM CHLORIDE 0.9% 200 ML IV PRN (01:16)
[2017-01-27] MEDS: SODIUM BICARBONATE 4.2%, 5ML NPPB SCH ×6 (01:30→21:30)
[2017-01-27] MEDS: ALBUTEROL/IPRATROPIUM 2.5MG/0.5MG, 3 ML INLINE SCH ×6 (02:00→22:00)
[2017-01-27 03:51] LABS: BLOOD UREA NITROGEN 35 mg/dL (7-18)
[2017-01-27 04:00] VITALS: BP 113/52
[2017-01-27 04:01] LABS: DIFF TOTAL CELLS COUNTED 100 CELL DIFF
[2017-01-27 04:05] LABS: ANISOCYTOSIS 1+; POLYCHROMASIA 1+; VERIFY COUNTS? YES
[2017-01-27 04:06] LABS: HYPOCHROMIA 1+
[2017-01-27 04:07] LABS: LARGE PLATELETS 1+
[2017-01-27 04:39] LABS: ABG COLLECTION SITE LEFT RADIAL
[2017-01-27 04:47] LABS: COLLATERAL CIRCULATION TESTING NORMAL
[2017-01-27] MEDS: PROPOFOL 100 ML IV PRN (05:09)
[2017-01-27] MEDS: MICAFUNGIN 100 MG in SODIUM CHLORIDE 0.9% 100 ML IV SCH (07:40)
[2017-01-27] MEDS: PANTOPRAZOLE 40 MG IV IVPush SCH (07:40)
[2017-01-27] MEDS: HEPARIN 5,000 UNITS/ML, 1ML SQ SCH ×3 (07:41→23:38)
[2017-01-27] MEDS: METHYLNALTREXONE 12 MG/0.6 ML SQ SCH (08:30)
[2017-01-27] MEDS: LEVETIRACETAM 100 MG/ML ORAL SOL PO SCH ×2 (09:18→20:51)
[2017-01-27] MEDS: AMIODARONE 200 MG TABLET NG SCH ×2 (09:18→20:51)
[2017-01-27] MEDS ORDERED: MEROPENEM 500 MG in SODIUM CHLORIDE 0.9% 100 ML IV SCH (20:30)
[2017-01-27] MEDS ORDERED: VANCOMYCIN 2,200 MG in SODIUM CHLORIDE 0.9% 500 ML IV ONE (22:00)
[2017-01-28] MEDS: SODIUM BICARBONATE 4.2%, 5ML NPPB SCH ×7 (01:30→22:54)
[2017-01-28] MEDS: ALBUTEROL/IPRATROPIUM 2.5MG/0.5MG, 3 ML INLINE SCH ×6 (02:00→22:00)
[2017-01-28 04:00] VITALS: BP 111/53
[2017-01-28 04:22] LABS: BLOOD UREA NITROGEN 44 mg/dL (7-18)
[2017-01-28 04:28] LABS: ABG COLLECTION SITE RIGHT RADIAL; COLLATERAL CIRCULATION TESTING NORMAL
[2017-01-28 05:15] LABS: DIFF TOTAL CELLS COUNTED 100 CELL DIFF
[2017-01-28 05:17] LABS: ANISOCYTOSIS 1+; POLYCHROMASIA 1+
[2017-01-28 05:18] LABS: LARGE PLATELETS 1+; OVALOCYTES 1+; VERIFY COUNTS? YES
[2017-01-28] MEDS: MICAFUNGIN 100 MG in SODIUM CHLORIDE 0.9% 100 ML IV SCH (06:45)
[2017-01-28] MEDS: METHYLNALTREXONE 12 MG/0.6 ML SQ SCH (08:27)
[2017-01-28] MEDS: AMIODARONE 200 MG TABLET NG SCH ×2 (08:27→21:20)
[2017-01-28] MEDS: PANTOPRAZOLE 40 MG IV IVPush SCH (08:27)
[2017-01-28] MEDS: HEPARIN 5,000 UNITS/ML, 1ML SQ SCH ×3 (08:27→23:42)
[2017-01-28] MEDS: LEVETIRACETAM 100 MG/ML ORAL SOL PO SCH ×2 (08:28→21:20)
[2017-01-29] MEDS: ALBUTEROL/IPRATROPIUM 2.5MG/0.5MG, 3 ML INLINE SCH ×6 (02:00→21:55)
[2017-01-29 04:00] VITALS: BP 136/61
[2017-01-29 04:32] LABS: ABG COLLECTION SITE LEFT RADIAL
[2017-01-29 04:33] LABS: COLLATERAL CIRCULATION TESTING NORMAL
[2017-01-29 04:36] LABS: BLOOD UREA NITROGEN 42 mg/dL (7-18)
[2017-01-29 05:48] LABS: DIFF TOTAL CELLS COUNTED 100 CELL DIFF
[2017-01-29 05:50] LABS: ANISOCYTOSIS 1+; VERIFY COUNTS? YES
[2017-01-29 05:51] LABS: LARGE PLATELETS 1+; POLYCHROMASIA 1+
[2017-01-29] MEDS: MICAFUNGIN 100 MG in SODIUM CHLORIDE 0.9% 100 ML IV SCH (06:44)
[2017-01-29] MEDS: HEPARIN 5,000 UNITS/ML, 1ML SQ SCH ×3 (07:51→23:55)
[2017-01-29] MEDS: PANTOPRAZOLE 40 MG IV IVPush SCH (07:51)
[2017-01-29] MEDS: METHYLNALTREXONE 12 MG/0.6 ML SQ SCH (08:58)
[2017-01-29] MEDS: ERGOCALCIFEROL 50,000 UNIT CAPSULE PO SCH (08:59)
[2017-01-29] MEDS: LEVETIRACETAM 100 MG/ML ORAL SOL PO SCH ×2 (08:59→20:41)
[2017-01-29] MEDS: AMIODARONE 200 MG TABLET NG SCH ×2 (08:59→20:41)
[2017-01-29] MEDS: SODIUM BICARBONATE 4.2%, 5ML NPPB SCH ×5 (09:30→21:55)
[2017-01-30] MEDS: SODIUM BICARBONATE 4.2%, 5ML NPPB SCH ×5 (02:05→17:30)
[2017-01-30] MEDS: ALBUTEROL/IPRATROPIUM 2.5MG/0.5MG, 3 ML INLINE SCH ×6 (02:05→21:46)
[2017-01-30 04:00] VITALS: BP 107/60
[2017-01-30 04:16] LABS: ABG COLLECTION SITE RIGHT RADIAL; COLLATERAL CIRCULATION TESTING NORMAL
[2017-01-30 04:26] LABS: ASPARTATE AMINO TRANSFERASE 118 U/L (15-37); BLOOD UREA NITROGEN 48 mg/dL (7-18)
[2017-01-30] MEDS: MICAFUNGIN 100 MG in SODIUM CHLORIDE 0.9% 100 ML IV SCH (06:29)
[2017-01-30 06:51] LABS: DIFF TOTAL CELLS COUNTED 100 CELL DIFF
[2017-01-30 06:54] LABS: VERIFY COUNTS? YES
[2017-01-30 06:55] LABS: ANISOCYTOSIS 1+
[2017-01-30 06:56] LABS: OVALOCYTES 1+; POLYCHROMASIA 1+
[2017-01-30 06:57] LABS: GIANT PLATELETS 1+; LARGE PLATELETS 1+
[2017-01-30] MEDS: PANTOPRAZOLE 40 MG IV IVPush SCH (08:30)
[2017-01-30] MEDS: HEPARIN 5,000 UNITS/ML, 1ML SQ SCH ×3 (08:30→22:52)
[2017-01-30] MEDS: AMIODARONE 200 MG TABLET NG SCH ×2 (08:31→21:09)
[2017-01-30] MEDS: METHYLNALTREXONE 12 MG/0.6 ML SQ SCH (08:32)
[2017-01-30] MEDS: LEVETIRACETAM 100 MG/ML ORAL SOL PO SCH ×2 (08:32→21:09)
[2017-01-30 17:45] VITALS: BP 125/62
[2017-01-30 18:00] VITALS: BP 107/59
[2017-01-30 18:15] VITALS: BP 102/52
[2017-01-30 18:30] VITALS: BP 114/66
[2017-01-30 18:45] VITALS: BP 108/68
[2017-01-31] VITALS (8 sets, daily range): BP systolic 101–135; BP diastolic 49–71
[2017-01-31] MEDS: SODIUM BICARBONATE 4.2%, 5ML NPPB SCH ×2 (01:30→06:40)
[2017-01-31] MEDS: ALBUTEROL/IPRATROPIUM 2.5MG/0.5MG, 3 ML INLINE SCH ×6 (01:58→21:59)
[2017-01-31 04:13] LABS: ABG COLLECTION SITE RIGHT RADIAL; COLLATERAL CIRCULATION TESTING NORMAL
[2017-01-31 04:59] LABS: BLOOD UREA NITROGEN 45 mg/dL (7-18)
[2017-01-31 05:36] LABS: DIFF TOTAL CELLS COUNTED 100 CELL DIFF
[2017-01-31 05:38] LABS: ANISOCYTOSIS 1+; VERIFY COUNTS? YES
[2017-01-31 05:39] LABS: LARGE PLATELETS 1+; POLYCHROMASIA 1+
[2017-01-31] MEDS: MICAFUNGIN 100 MG in SODIUM CHLORIDE 0.9% 100 ML IV SCH (06:22)
[2017-01-31] MEDS: PANTOPRAZOLE 40 MG IV IVPush SCH (09:35)
[2017-01-31] MEDS: LEVOTHYROXINE 50 MCG TABLET PO SCH (09:36)
[2017-01-31] MEDS: AMIODARONE 200 MG TABLET NG SCH ×2 (09:36→21:02)
[2017-01-31] MEDS: HEPARIN 5,000 UNITS/ML, 1ML SQ SCH ×3 (09:36→23:15)
[2017-01-31] MEDS: LEVETIRACETAM 100 MG/ML ORAL SOL PO SCH ×2 (09:36→21:03)
[2017-02-01] MEDS: ALBUTEROL/IPRATROPIUM 2.5MG/0.5MG, 3 ML INLINE SCH ×6 (01:05→22:00)
[2017-02-01 04:00] VITALS: BP 99/48
[2017-02-01 04:41] LABS: ABG COLLECTION SITE LEFT RADIAL; COLLATERAL CIRCULATION TESTING NORMAL
[2017-02-01 05:23] LABS: BLOOD UREA NITROGEN 52 mg/dL (7-18)
[2017-02-01 05:41] LABS: DIFF TOTAL CELLS COUNTED 100 CELL DIFF
[2017-02-01 05:43] LABS: VERIFY COUNTS? YES
[2017-02-01 05:44] LABS: ANISOCYTOSIS 1+; POLYCHROMASIA 1+
[2017-02-01 05:45] LABS: OVALOCYTES 1+
[2017-02-01 05:46] LABS: LARGE PLATELETS 1+
[2017-02-01] MEDS: LEVOTHYROXINE 50 MCG TABLET PO SCH (05:48)
[2017-02-01] MEDS: HEPARIN 5,000 UNITS/ML, 1ML SQ SCH ×3 (08:09→23:59)
[2017-02-01] MEDS: PANTOPRAZOLE 40 MG IV IVPush SCH (08:09)
[2017-02-01] MEDS: AMIODARONE 200 MG TABLET NG SCH ×2 (08:10→21:09)
[2017-02-01] MEDS: LEVETIRACETAM 100 MG/ML ORAL SOL PO SCH ×2 (08:10→21:09)
[2017-02-02] MEDS: ALBUTEROL/IPRATROPIUM 2.5MG/0.5MG, 3 ML INLINE SCH ×6 (01:42→22:10)
[2017-02-02 04:00] VITALS: BP 112/73
[2017-02-02 04:12] LABS: ABG COLLECTION SITE RIGHT RADIAL; COLLATERAL CIRCULATION TESTING NORMAL
[2017-02-02] MEDS: LEVOTHYROXINE 50 MCG TABLET PO SCH (05:34)
[2017-02-02 06:41] LABS: BLOOD UREA NITROGEN 55 mg/dL (7-18)
[2017-02-02] MEDS: PANTOPRAZOLE 40 MG IV IVPush SCH (08:35)
[2017-02-02] MEDS: HEPARIN 5,000 UNITS/ML, 1ML SQ SCH ×3 (08:35→23:46)
[2017-02-02] MEDS: BISACODYL 10 MG SUPP PR PRN (08:37)
[2017-02-02] MEDS: LEVETIRACETAM 100 MG/ML ORAL SOL PO SCH ×2 (08:37→21:21)
[2017-02-02] MEDS: AMIODARONE 200 MG TABLET NG SCH ×2 (08:42→21:21)
[2017-02-03] MEDS: ALBUTEROL/IPRATROPIUM 2.5MG/0.5MG, 3 ML INLINE SCH ×6 (02:40→21:29)
[2017-02-03 04:23] LABS: ABG COLLECTION SITE RIGHT RADIAL; COLLATERAL CIRCULATION TESTING NORMAL
[2017-02-03 04:25] LABS: BLOOD UREA NITROGEN 47 mg/dL (7-18)
[2017-02-03 05:08] VITALS: BP 116/58
[2017-02-03] MEDS: LEVOTHYROXINE 50 MCG TABLET PO SCH (05:46)
[2017-02-03] MEDS: PANTOPRAZOLE 40 MG IV IVPush SCH (08:14)
[2017-02-03] MEDS: AMIODARONE 200 MG TABLET NG SCH ×2 (08:14→22:21)
[2017-02-03] MEDS: LEVETIRACETAM 100 MG/ML ORAL SOL PO SCH ×2 (08:14→22:21)
[2017-02-03] MEDS: HEPARIN 5,000 UNITS/ML, 1ML SQ SCH ×3 (08:14→23:59)
[2017-02-04] MEDS: ALBUTEROL/IPRATROPIUM 2.5MG/0.5MG, 3 ML INLINE SCH ×6 (03:00→21:50)
[2017-02-04 04:00] VITALS: BP 106/55
[2017-02-04 04:22] LABS: BLOOD UREA NITROGEN 44 mg/dL (7-18)
[2017-02-04 04:34] LABS: ABG COLLECTION SITE RIGHT RADIAL; COLLATERAL CIRCULATION TESTING NORMAL
[2017-02-04] MEDS: LEVOTHYROXINE 50 MCG TABLET PO SCH (05:41)
[2017-02-04] MEDS: HEPARIN 5,000 UNITS/ML, 1ML SQ SCH ×2 (09:53→16:28)
[2017-02-04] MEDS: LEVETIRACETAM 100 MG/ML ORAL SOL PO SCH ×2 (09:54→20:55)
[2017-02-04] MEDS: PANTOPRAZOLE 40 MG IV IVPush SCH (09:54)
[2017-02-04] MEDS: ARTIFICIAL TEARS OPHTH SOLN 15ML OP PRN (09:54)
[2017-02-04] MEDS: AMIODARONE 200 MG TABLET NG SCH ×2 (09:59→20:55)
[2017-02-05] MEDS: HEPARIN 5,000 UNITS/ML, 1ML SQ SCH ×4 (00:06→23:35)
[2017-02-05] MEDS: ALBUTEROL/IPRATROPIUM 2.5MG/0.5MG, 3 ML INLINE SCH ×6 (01:58→21:48)
[2017-02-05 04:00] VITALS: BP 116/62
[2017-02-05 04:34] LABS: ABG COLLECTION SITE LEFT RADIAL; COLLATERAL CIRCULATION TESTING NORMAL
[2017-02-05 05:48] LABS: BLOOD UREA NITROGEN 50 mg/dL (7-18)
[2017-02-05] MEDS: LEVOTHYROXINE 50 MCG TABLET PO SCH (05:58)
[2017-02-05] MEDS: ERGOCALCIFEROL 50,000 UNIT CAPSULE PO SCH (08:16)
[2017-02-05] MEDS: LEVETIRACETAM 100 MG/ML ORAL SOL PO SCH ×2 (08:17→20:57)
[2017-02-05] MEDS: PANTOPRAZOLE 40 MG IV IVPush SCH (08:18)
[2017-02-05] MEDS: AMIODARONE 200 MG TABLET NG SCH ×2 (08:18→20:57)
[2017-02-05] MEDS: LACTULOSE 20 GM/30 ML UDC NG PRN (09:43)
[2017-02-05] MEDS: ARTIFICIAL TEARS OPHTH SOLN 15ML OP PRN (23:35)
[2017-02-06] MEDS: ALBUTEROL/IPRATROPIUM 2.5MG/0.5MG, 3 ML INLINE SCH ×6 (02:00→22:00)
[2017-02-06 04:24] VITALS: BP 106/54
[2017-02-06 04:31] LABS: ABG COLLECTION SITE RIGHT RADIAL; COLLATERAL CIRCULATION TESTING NORMAL
[2017-02-06 04:53] LABS: ASPARTATE AMINO TRANSFERASE 57 U/L (15-37); BLOOD UREA NITROGEN 43 mg/dL (7-18)
[2017-02-06] MEDS: LEVOTHYROXINE 50 MCG TABLET PO SCH (05:37)
[2017-02-06] MEDS: PANTOPRAZOLE 40 MG IV IVPush SCH (07:38)
[2017-02-06] MEDS: HEPARIN 5,000 UNITS/ML, 1ML SQ SCH ×3 (07:38→23:21)
[2017-02-06] MEDS: AMIODARONE 200 MG TABLET NG SCH ×2 (10:00→21:19)
[2017-02-06] MEDS: LEVETIRACETAM 100 MG/ML ORAL SOL PO SCH ×2 (10:00→21:19)
[2017-02-06] MEDS: SCOPOLAMINE PATCH, 1.5MG PATCH.TD72 TD SCH (15:17)
[2017-02-06] MEDS: LACTULOSE 20 GM/30 ML UDC NG PRN (17:53)
[2017-02-06] MEDS: POLYETHYLENE GLYCOL 17 GM PACKET PO PRN (17:53)
[2017-02-07] MEDS: ALBUTEROL/IPRATROPIUM 2.5MG/0.5MG, 3 ML INLINE SCH ×6 (02:00→21:50)
[2017-02-07 04:20] VITALS: BP 110/64
[2017-02-07 04:43] LABS: BLOOD UREA NITROGEN 44 mg/dL (7-18)
[2017-02-07 04:48] LABS: ABG COLLECTION SITE RIGHT RADIAL; COLLATERAL CIRCULATION TESTING NORMAL
[2017-02-07] MEDS: LEVOTHYROXINE 50 MCG TABLET PO SCH (05:57)
[2017-02-07] MEDS: HEPARIN 5,000 UNITS/ML, 1ML SQ SCH ×2 (10:39→15:30)
[2017-02-07] MEDS: PANTOPRAZOLE 40 MG IV IVPush SCH (10:39)
[2017-02-07] MEDS: LEVETIRACETAM 100 MG/ML ORAL SOL PO SCH ×2 (10:39→20:57)
[2017-02-07] MEDS: AMIODARONE 200 MG TABLET NG SCH ×2 (10:39→20:59)
[2017-02-08] MEDS: ALBUTEROL/IPRATROPIUM 2.5MG/0.5MG, 3 ML INLINE SCH ×6 (02:25→22:10)
[2017-02-08 03:48] VITALS: BP 112/60
[2017-02-08 04:04] LABS: BLOOD UREA NITROGEN 40 mg/dL (7-18)
[2017-02-08 04:31] LABS: ABG COLLECTION SITE RIGHT BRACHIAL
[2017-02-08] MEDS: LEVOTHYROXINE 50 MCG TABLET PO SCH (05:46)
[2017-02-08] MEDS ORDERED: BUPIVACAINE/PF-EPI 0.5% 1:200K ONE (06:41)
[2017-02-08] MEDS: AMIODARONE 200 MG TABLET NG SCH ×2 (09:23→21:27)
[2017-02-08] MEDS: LEVETIRACETAM 100 MG/ML ORAL SOL PO SCH ×2 (09:23→21:27)
[2017-02-08] MEDS: PANTOPRAZOLE 40 MG IV IVPush SCH (09:24)
[2017-02-08] MEDS ORDERED: MIDAZOLAM 1 MG/ML, 2ML ONE (09:50)
[2017-02-08] MEDS ORDERED: FENTANYL PF 250 MCG/5ML ONE (09:50)
[2017-02-08] MEDS ORDERED: KETAMINE 10 MG/ML, 20ML ONE (09:50)
[2017-02-08] MEDS ORDERED: PHENYLEPHRINE 10 MG/ML ONE (10:15)
[2017-02-08] MEDS ORDERED: ROCURONIUM 10 MG/ML ONE (10:15)
[2017-02-08] MEDS ORDERED: CLINDAMYCIN 150 MG/ML, 6ML ONE (10:37)
[2017-02-09] MEDS: ALBUTEROL/IPRATROPIUM 2.5MG/0.5MG, 3 ML INLINE SCH ×6 (01:52→22:10)
[2017-02-09 03:34] VITALS: BP 100/57
[2017-02-09 04:19] LABS: ASPARTATE AMINO TRANSFERASE 66 U/L (15-37); BLOOD UREA NITROGEN 21 mg/dL (7-18)
[2017-02-09 06:12] LABS: ABG COLLECTION SITE RIGHT RADIAL; COLLATERAL CIRCULATION TESTING NORMAL
[2017-02-09] MEDS: LEVOTHYROXINE 50 MCG TABLET PO SCH (06:17)
[2017-02-09] MEDS ORDERED: EPINEPHRINE SYRINGE 0.1 MG/ML, 10ML ONE (08:00)
[2017-02-09] MEDS ORDERED: ETOMIDATE 20 MG/10 ML ONE (08:00)
[2017-02-09] MEDS ORDERED: ATROPINE SYRINGE 0.1 MG/ML, 10ML ONE (08:00)
[2017-02-09] MEDS ORDERED: SUCCINYLCHOLINE 20 MG/ML, 10ML ONE (08:00)
[2017-02-09] MEDS ORDERED: SODIUM BICARB 8.4%, 50ML SYRINGE ONE (08:00)
[2017-02-09] MEDS ORDERED: POTASSIUM PHOSPHATE 22 MEQ in SODIUM CHLORIDE 0.9% 500 ML IV ONE (09:00)
[2017-02-09] MEDS: AMIODARONE 200 MG TABLET NG SCH ×2 (10:08→21:17)
[2017-02-09] MEDS: LEVETIRACETAM 100 MG/ML ORAL SOL PO SCH ×2 (10:08→21:17)
[2017-02-09] MEDS: SCOPOLAMINE PATCH, 1.5MG PATCH.TD72 TD SCH (15:00)
[2017-02-09] MEDS: PANTOPRAZOLE 40 MG IV IVPush SCH (16:00)
[2017-02-10] MEDS: ALBUTEROL/IPRATROPIUM 2.5MG/0.5MG, 3 ML INLINE SCH (02:24)
[2017-02-10] MEDS ORDERED: SODIUM BICARB 8.4%, 50ML SYRINGE ONE (03:28)
[2017-02-10] MEDS ORDERED: CODE BLUE RESPONSE XX ONE (03:42)
[2017-02-10] MEDS ORDERED: EPINEPHRINE SYRINGE 0.1 MG/ML, 10ML ONE (03:42)
== END 2017-02-10 12:25 | disposition expired | DRG 3 ==
LOC: EDBD → MERGE 16:36 → ED 17:03 → EDIP 17:43 → CCU 20:00
PROVIDERS: ADMIT Hospitalist; ATTEND Hospitalist
PROC: 5A12012 Performance of Cardiac Output, Single, Manual (ICD-10-PCS; 2017-01-13)
PROC: 5A1955Z Respiratory Ventilation, Greater than 96 Consecutive Hours (ICD-10-PCS; 2017-01-13)
PROC: 06HM33Z Insertion of Infusion Device into Right Femoral Vein, Percutaneous Approach (ICD-10-PCS; 2017-01-13)
PROC: 5A2204Z Restoration of Cardiac Rhythm, Single (ICD-10-PCS; 2017-01-13)
PROC: B54BZZA Ultrasonography of Right Lower Extremity Veins, Guidance (ICD-10-PCS; 2017-01-13)
PROC: 0BH17EZ Insertion of Endotracheal Airway into Trachea, Via Natural or Artificial Opening (ICD-10-PCS; 2017-01-13)
PROC: 0T9B70Z Drainage of Bladder with Drainage Device, Via Natural or Artificial Opening (ICD-10-PCS; 2017-01-13)
PROC: 02HV33Z Insertion of Infusion Device into Superior Vena Cava, Percutaneous Approach (ICD-10-PCS; 2017-01-15)
PROC: B548ZZA Ultrasonography of Superior Vena Cava, Guidance (ICD-10-PCS; 2017-01-15)
PROC: 02HV33Z Insertion of Infusion Device into Superior Vena Cava, Percutaneous Approach (ICD-10-PCS; 2017-01-15)
PROC: B548ZZA Ultrasonography of Superior Vena Cava, Guidance (ICD-10-PCS; 2017-01-15)
PROC: 0BCL4ZZ Extirpation of Matter from Left Lung, Percutaneous Endoscopic Approach (ICD-10-PCS; 2017-01-19)
PROC: 0BC98ZZ Extirpation of Matter from Lingula Bronchus, Via Natural or Artificial Opening Endoscopic (ICD-10-PCS; 2017-01-19)
PROC: 0BC88ZZ Extirpation of Matter from Left Upper Lobe Bronchus, Via Natural or Artificial Opening Endoscopic (ICD-10-PCS; 2017-01-19)
PROC: 0BCB8ZZ Extirpation of Matter from Left Lower Lobe Bronchus, Via Natural or Artificial Opening Endoscopic (ICD-10-PCS; 2017-01-19)
PROC: 0T9B70Z Drainage of Bladder with Drainage Device, Via Natural or Artificial Opening (ICD-10-PCS; 2017-01-22)
PROC: 0BCL4ZZ Extirpation of Matter from Left Lung, Percutaneous Endoscopic Approach (ICD-10-PCS; principal; 2017-01-24)
PROC: 0BC98ZZ Extirpation of Matter from Lingula Bronchus, Via Natural or Artificial Opening Endoscopic (ICD-10-PCS; 2017-01-24)
PROC: 0BC88ZZ Extirpation of Matter from Left Upper Lobe Bronchus, Via Natural or Artificial Opening Endoscopic (ICD-10-PCS; 2017-01-24)
PROC: 0BCB8ZZ Extirpation of Matter from Left Lower Lobe Bronchus, Via Natural or Artificial Opening Endoscopic (ICD-10-PCS; 2017-01-24)
PROC: 30233N1 Transfusion of Nonautologous Red Blood Cells into Peripheral Vein, Percutaneous Approach (ICD-10-PCS; 2017-01-30)
PROC: 0DHA0UZ Insertion of Feeding Device into Jejunum, Open Approach (ICD-10-PCS; 2017-02-08)
PROC: 0B110F4 Bypass Trachea to Cutaneous with Tracheostomy Device, Open Approach (ICD-10-PCS; 2017-02-08 11:30)
PROC: 5A12012 Performance of Cardiac Output, Single, Manual (ICD-10-PCS; 2017-02-10)
DX: O99.411 Diseases of the circulatory system complicating pregnancy, first trimester (principal); A41.9 Sepsis, unspecified organism; G93.5 Compression of brain; G93.6 Cerebral edema; I21.4 Non-ST elevation (NSTEMI) myocardial infarction; J14 Pneumonia due to Hemophilus influenzae; J69.0 Pneumonitis due to inhalation of food and vomit; N17.0 Acute kidney failure with tubular necrosis; R65.21 Severe sepsis with septic shock; J96.21 Acute and chronic respiratory failure with hypoxia; I50.43 Acute on chronic combined systolic (congestive) and diastolic (congestive) heart failure; G93.1 Anoxic brain damage, not elsewhere classified; I42.9 Cardiomyopathy, unspecified; O98.811 Other maternal infectious and parasitic diseases complicating pregnancy, first trimester; O26.831 Pregnancy related renal disease, first trimester; E24.9 Cushing's syndrome, unspecified; O23.41 Unspecified infection of urinary tract in pregnancy, first trimester; T17.590A Other foreign object in bronchus causing asphyxiation, initial encounter; T17.890A Other foreign object in other parts of respiratory tract causing asphyxiation, initial encounter; Z99.11 Dependence on respirator [ventilator] status; O99.351 Diseases of the nervous system complicating pregnancy, first trimester; O99.281 Endocrine, nutritional and metabolic diseases complicating pregnancy, first trimester; O99.011 Anemia complicating pregnancy, first trimester; O99.841 Bariatric surgery status complicating pregnancy, first trimester; O99.511 Diseases of the respiratory system complicating pregnancy, first trimester; I46.2 Cardiac arrest due to underlying cardiac condition; I49.01 Ventricular fibrillation; Z66 Do not resuscitate; O99.211 Obesity complicating pregnancy, first trimester; E66.01 Morbid (severe) obesity due to excess calories; I27.2 Other secondary pulmonary hypertension; D64.9 Anemia, unspecified; E83.51 Hypocalcemia; E87.6 Hypokalemia; Z51.5 Encounter for palliative care; I45.10 Unspecified right bundle-branch block; E03.9 Hypothyroidism, unspecified; N05.9 Unspecified nephritic syndrome with unspecified morphologic changes; Z88.0 Allergy status to penicillin; Z68.34 Body mass index [BMI] 34.0-34.9, adult; Z3A.13 13 weeks gestation of pregnancy; Z99.81 Dependence on supplemental oxygen; Z99.2 Dependence on renal dialysis; Z87.74 Personal history of (corrected) congenital malformations of heart and circulatory system
CPT/HCPCS: 31624; 36415; 36556; 36569; 36600; 70450; 70551; 71010; 71275; 76801; 76937; 77001; 80047; 80048; 80053; 80202; 80307; 81001; 82306; 82330; 82436; 82728; 82803; 82805; 82962; 83036; 83540; 83550; 83605; 83735; 83970; 84100; 84132; 84133; 84145; 84300; 84439; 84443; 84478; 84481; 84484; 84550; 85025; 85520; 85610; 85730; 86022; 86704; 86706; 86850; 86900; 86923; 87040; 87070; 87081; 87086; 87106; 87205; 87340; 92950; 93005; 93970; 94002; 94003; 94640; 94668; 95819; 99285; J0461; J1165; J1644; J1815; J1940; J2185; J2248; J2250; J2704; J3010; J3370; J3475; J3480; J3490; J7070; J7620; P9047; Q9967; C1751; C8924; C9113; J0171; J0282; J0330; J1250; J1450; J1642; J2370; J7030; J7040; J7050; J7060; P9016; S0028